=== PATIENT | male | born 1970 | race Caucasian/White ===

== ENCOUNTER → 2017-08-27 | Outpatient (CLI) | payer BC ==
[~2017-08-27] MED LIST: AMLO-145 PO; ASPI-664 PO; ATOR80TA75 PO; BENA40TA41 PO; CLOP75TA27 PO; GLIP-95 PO; IBUP-1542 PO; ISOS30TA5 PO; METO-336 PO; MTF1000T PO; OMEG1CAP90 PO; PHEN100C PO; PRED20TA PO
== END | disposition home or self-care (01) ==
LOC: EEG 09:35
PROVIDERS: ATTEND Psychiatry & Neurology Neurology
DX: R56.9 Unspecified convulsions (principal)
CPT/HCPCS: 95819